=== PATIENT | female | born 1955 | race Caucasian/White ===

== ENCOUNTER → 2022-04-03 | Outpatient (REF) ==
[~2022-04-03] MED LIST: AMLO10TA PO; AMLO1TAB24 PO; AMLO1TAB25 PO; ARIC1TAB PO; ASPI-1 PO; ASPI81CH32 PO; ATOR1TAB21 PO; BISO5TAB14 PO; CHOL100029 PO; CIPR-249 PO; CRAN400T3 PO; CYAN100049 PO; DIFL50TA PO; LISI10TA22 PO; OLAN1TAB20 PO; RISP2TAB32 PO; SAM-400T3 PO; TRAZ-252 PO; Thiamine Hcl PO; VITA500055 PO; ZYPR5TAB2 PO
[2022-04-03 12:46] LABS: HEMATOCRIT 27.8 % (36.0-47.0); MEAN CORPUSCULAR HEMOGLOBIN 28.1 pg (27.0-33.0); MEAN CORPUSCULAR HGB CONC 32.4 g/dl (32.0-36.5); MEAN CORPUSCULAR VOLUME 86.9 fl (80.0-96.0); WHITE BLOOD COUNT 4.6 10^3/uL (4.0-10.0)
[2022-04-03 13:10] LABS: PLATELET COUNT, AUTOMATED 89 10^3/uL (150-450)
[2022-04-03 13:22] LABS: ALBUMIN 2.5 GM/DL (3.2-5.2); ALT/SGPT 17 U/L (12-78); BILIRUBIN,TOTAL 0.3 MG/DL (0.2-1.0); BLOOD UREA NITROGEN 22 MG/DL (7-18); CALCIUM LEVEL 8.7 MG/DL (8.8-10.2); CARBON DIOXIDE LEVEL 26 MEQ/L (21-32); CHLORIDE LEVEL 104 MEQ/L (98-107); CREATININE FOR GFR 0.91 MG/DL (0.55-1.30); GLOMERULAR FILTRATION RATE > 60.0 (>45); GLUCOSE, FASTING 140 MG/DL (70-100); POTASSIUM SERUM 4.3 MEQ/L (3.5-5.1); SODIUM LEVEL 136 MEQ/L (136-145); TOTAL PROTEIN 5.8 GM/DL (6.4-8.2)
[2022-04-03 14:11] LABS: APPEARANCE, URINE MANUAL HAZY (CLEAR); COLOR, URINE MANUAL YELLOW (YELLOW)
[2022-04-03 14:13] LABS: BILIRUBIN, URINE MANUAL NEGATIVE (NEGATIVE); BLOOD URINE MANUAL POSITIVE (NEGATIVE); GLUCOSE, URINE (UA) MANUAL NEGATIVE (NEGATIVE); KETONE, URINE MANUAL NEGATIVE (NEGATIVE); LEUKOCYTE ESTERASE, URINE MAN NEGATIVE (NEGATIVE); NITRITE, URINE MANUAL NEGATIVE (NEGATIVE); PROTEIN, URINE MANUAL TRACE mg/dL (NEGATIVE); SPECIFIC GRAVITY,URINE MANUAL 1.015 (1.002-1.035); UROBILINOGEN, URINE MANUAL NORMAL (NORMAL)
[2022-04-03 14:21] LABS: BACTERIA, URINE SMALL AMOUNT; SQUAMOUS EPITHELIAL CELL URINE MOD AMOUNT /hpf (SMALL AMT); YEAST, URINE MOD AMOUNT
[2022-04-03 14:22] LABS: HYALINE CAST, URINE NONE SEEN /lpf (0-1); MUCUS, URINE SMALL AMOUNT (NEGATIVE)
== END ==
LOC: SKLAB4 11:50
PROVIDERS: ATTEND Nurse Practitioner Family
DX: R53.83 Other fatigue (principal)

== ENCOUNTER 2022-04-05 14:36 | Emergency (ER) | payer MEDICARE, BC ==
[2022-04-05] MEDS ORDERED: ACETAMINOPHEN 650 MG SUPP PR ONE (15:05)
[2022-04-05 16:28] LABS: BASO % 0.5 % (0.0-1.0); EOS # 0.1 10^3/uL (0.0-0.5); EOS % 1.4 % (0.0-3.0); HEMATOCRIT 31.3 % (36.0-47.0); HEMOGLOBIN 9.7 g/dl (12.0-15.5); LYMPH # 0.6 10^3/uL (1.5-5.0); LYMPH % 9.8 % (24.0-44.0); MEAN CORPUSCULAR HEMOGLOBIN 27.8 pg (27.0-33.0); MEAN CORPUSCULAR VOLUME 89.7 fl (80.0-96.0); MONO # 0.3 10^3/uL (0.0-0.8); MONO % 5.1 % (2.0-8.0); NEUTROPHILS # 4.7 10^3/uL (1.5-8.5); NEUTROPHILS % 81.8 % (36.0-66.0); RED BLOOD COUNT 3.49 10^6/uL (4.00-5.40); WHITE BLOOD COUNT 5.7 10^3/uL (4.0-10.0)
[2022-04-05 16:28] LABS: RSV AMPLIFICATION NEGATIVE (NEGATIVE)
[2022-04-05 16:31] LABS: PLATELET COUNT, AUTOMATED 81 10^3/uL (150-450)
[2022-04-05 16:43] LABS: ALBUMIN 2.7 GM/DL (3.2-5.2); ALT/SGPT 26 U/L (12-78); BILIRUBIN,DIRECT < 0.1 MG/DL (0.0-0.2); BILIRUBIN,TOTAL 0.2 MG/DL (0.2-1.0); BLOOD UREA NITROGEN 35 MG/DL (7-18); CALCIUM LEVEL 8.5 MG/DL (8.8-10.2); CARBON DIOXIDE LEVEL 29 MEQ/L (21-32); CHLORIDE LEVEL 105 MEQ/L (98-107); CREATININE FOR GFR 1.12 MG/DL (0.55-1.30); GLOMERULAR FILTRATION RATE 51.7 (>45); GLUCOSE, FASTING 142 MG/DL (70-100); POTASSIUM SERUM 4.6 MEQ/L (3.5-5.1); SODIUM LEVEL 138 MEQ/L (136-145); TOTAL PROTEIN 6.3 GM/DL (6.4-8.2)
[2022-04-05 16:50] LABS: ERYTHROCYTE SEDIMENTATION RATE 61 mm/hr (0-30)
[2022-04-05] MEDS ORDERED: IBUPROFEN 800 MG TAB PO ONE (17:40)
[2022-04-05] MEDS ORDERED: CRAN1CAP11 PO (18:16)
[2022-04-05] MEDS ORDERED: DILA125S PO (18:16)
[2022-04-05] MEDS ORDERED: ATOR1TAB21 PO (18:16)
[2022-04-05] MEDS ORDERED: DULC10SU2 PR (18:16)
[2022-04-05] MEDS ORDERED: SENN-83 PO (18:16)
[2022-04-05] MEDS ORDERED: CLOB20TA13 PO (18:16)
[2022-04-05] MEDS ORDERED: FLEEENE12 PR (18:16)
[2022-04-05] MEDS ORDERED: VITA500T40 PO (18:16)
[2022-04-05] MEDS ORDERED: MILK400S12 PO (18:16)
[2022-04-05] MEDS ORDERED: THIA100TA PO (18:16)
[2022-04-05] MEDS ORDERED: [UNRECOGNIZED DRUG - CODE] PO (18:16)
[2022-04-05] MEDS ORDERED: ACET-907 PO (18:16)
[2022-04-05] MEDS ORDERED: KEPP1TAB2 PO (18:16)
[2022-04-05] MEDS ORDERED: HOME MED LIST COMPLETE! XX SCH (18:25)
[2022-04-05] MEDS ORDERED: cefTRIAXone SOD 2 GM in D5W MINI-BAG PLUS 50 ML IV ONE (18:35)
[2022-04-05] MEDS ORDERED: VANCOMYCIN HCL 1,000 MG, VIAL MATE ADAPTER 1 EACH in NS 250 ML IV STA (19:28)
[2022-04-05] MEDS ORDERED: NS 1,000 ML IV ONE (19:45)
[2022-04-05] MEDS ORDERED: NS 1,540 ML in IV 1 EA IV ONE (20:05)
[2022-04-05] MEDS: ACETAMINOPHEN 325 MG TAB PO ONE ×2 (20:11→20:20)
[2022-04-05] MEDS ORDERED: VANCOMYCIN HCL 750 MG, VIAL MATE ADAPTER 1 EACH in NS 250 ML IV ONE (20:30)
[2022-04-05] MEDS ORDERED: NS 1,000 ML IV SCH (21:50)
[2022-04-05 22:25] VITALS: BP 104/55
== END 2022-04-05 22:35 | disposition short-term general hospital (02) ==
LOC: M ED 14:36 → EDBD 14:36 → CANBEDREQ 16:25 → M ED 22:35
DX: T84.51XA Infection and inflammatory reaction due to internal right hip prosthesis, initial encounter (principal); A41.9 Sepsis, unspecified organism; R00.0 Tachycardia, unspecified; I51.7 Cardiomegaly; Z87.820 Personal history of traumatic brain injury; Z88.2 Allergy status to sulfonamides; Z96.0 Presence of urogenital implants; Z79.899 Other long term (current) drug therapy
CPT/HCPCS: 71045; 73502; 80048; 80076; 81000; 81015; 83605; 85025; 85049; 85055; 85652; 86140; 87040; 87088; 87631; 93005; 93041; 94760; 96365; 96375; 99291; 99292; J0696; J3370